=== PATIENT | female | born 1935 | race Caucasian/White ===

== ENCOUNTER → 2020-08-16 | Outpatient (CLI) | payer MEDICARE ==
--- NOTE | 2020-08-16 16:55 | RAD ---
PQRS Compliance Statement: One or more of the following individualized dose reduction techniques were utilized for this examinat ion: 1. Automated exposure control 2. Adjustment of the mA and/or kV according to patient size 3. Use of iterative reconstruction technique CT LOWER LEFT EXTREMITY WITHOUT CONTRAST Clinical Indication: Reason: OA L HIP Comparison: None. TECHNIQUE: Helical CT imaging of the pelvis is performed without IV contrast. Findings: There is no acute fracture or dislocation of the hips. There is mild to moderate arthropathy of the h ips for patient age. Small ossific bodies superior to the left hip may be heterotopic ossification. T here is probable diffuse demineralization. The sacroiliac joints are incompletely imaged. There is severe sigmoid colon diverticulosis. The urinary bladder is normal. Hysterectomy. No pelvic free fluid. No inguinal adenopathy. No acute intramuscular hematoma. IMPRESSION: 1. Mild to moderate arthropathy of the hips. 2. No acute bone abnormality. Electronically signed by: Christian Vargas MD (08/16/2020 4:52 PM) [facility]
== END ==
LOC: CT 11:14
PROVIDERS: ATTEND Nurse Practitioner Adult Health
DX: M16.12 Unilateral primary osteoarthritis, left hip (principal); K57.30 Diverticulosis of large intestine without perforation or abscess without bleeding
CPT/HCPCS: 73700

== ENCOUNTER 2021-06-14 17:07 | Emergency (ER) | payer MEDICARE ==
[~2021-06-14] VITALS: Ht 157.5 cm; Wt 80.0 kg
--- NOTE | 2021-06-14 18:07 | PHYS DOC ---
Past History Past Surgical History: Cholecystectomy, Knee Replacement, Other Additional Past Surgical Histo: back surgery x6; arm fx repair (JULIUS DHALIWAL APRN) Alcohol Use: None (JULIUS DHALIWAL APRN) General Adult EDM: Chief Complaint: RIB PAIN HPI: HPI: Patient is a 85-year-old female who presents after a fall with right-sided neck, shoulder and rib pain. Patient states she was outside when she tripped over a hose in the yard. Unknown loss of consciousness. Fall was not witnessed. Patient reports that pain is worse with taking a deep breath. Patient was able to ambulate for incident occurred. Denies taking anything at home for pain. Denies blood thinners. History of hypertension. (JULIUS DHALIWAL APRN) Review of Systems: Review of Systems: ROS At least 10 ROS systems have been reviewed and are negative except as documented in the HPI. General: Negative except as outlined in HPI above. Skin: Negative except as outlined in HPI above. HEENT: Negative except as outlined in HPI above. Neck: Negative except as outlined in HPI above. Respiratory: Negative except as outlined in HPI above.. Cardiovascular: Negative except as outlined in HPI above. Abdomen: Negative except as outlined in HPI above. : Negative except as outlined in HPI above. Back/MSK: Negative except as outlined in HPI above. Neuro: Negative except as outlined in HPI above. Psych: Negative except as outlined in HPI above. (JULIUS DHALIWAL APRN) Allergies: Allergies: Allergies Coded Allergies Type Severity Reaction Last Updated Verified Penicillins Allergy Unknown 06/14/21 Yes (JULIUS DHALIWAL APRN) Physical Exam: PE: Constitutional: Well developed, well nourished, no acute distress, non-toxic appearance. [] HENT: Normocephalic, atraumatic, bilateral external ears normal, oropharynx moist, no oral exudates, nose normal. [] Eyes: PERRLA, EOMI, conjunctiva normal, no discharge. [] Neck: Normal range of motion, no tenderness, supple, no stridor. [] Cardiovascular:Heart rate regular rhythm, no murmur [] Lungs & Thorax: Bilateral breath sounds clear to auscultation [] Abdomen: Bowel sounds normal, soft, no tenderness, no masses, no pulsatile masses. [] Skin: Warm, dry, no erythema, no rash. [] Back: No tenderness, no CVA tenderness. [] Extremities: Right-sided shoulder tenderness, ROM intact, no edema. [] Neurologic: Alert and oriented X 3, normal motor function, normal sensory function, no focal deficits noted. [] Psychologic: Affect normal, judgement normal, mood normal. [] (JULIUS DHALIWAL APRN) Current Patient Data: Vital Signs: Vital Signs Date Time Temp Pulse Resp B/P (MAP) Pulse Ox O2 Delivery O2 Flow Rate FiO2 06/14/21 17:53 63 18 157/84 (108) 98 06/14/21 17:22 97.5 Room Air (JULIUS DHALIWAL APRN) EKG: EKG: [] (JULIUS DHALIWAL APRN) Radiology/Procedures: Radiology/Procedures: []XR SHOULDER_RIGHT 2+ VIEWS DATE: 06/14/2021 6:03 PM INDICATION: fall, r shoulder pain COMPARISON: None. FINDINGS: Bones: There is no evidence of acute fracture or dislocation. Joints: Severe right clavicular joint degenerative changes. Moderate glenohumeral joint degenerative changes. The acromiohumeral distance is not narrowed. Miscellaneous: No abnormal soft tissue calcifications in the shoulder. IMPRESSION: No evidence of acute fracture. Electronically signed by: Rob Abdul MD (06/14/2021 6:55 PM) [facility] MIN 3 VIEWS RT W/PA CHEST DATE: 06/14/2021 6:03 PM INDICATION: fall, r shoulder pain, rib pain COMPARISON: None available. FINDINGS: Chest: Heart size is within normal limits. Atherosclerosis of the thoracic aorta. No focal consolidations are seen. No evidence for pulmonary edema, pleural effusion, or pneumothorax. Bones: Acute nondisplaced right fourth and sixth rib fractures. IMPRESSION: Acute nondisplaced right fourth and sixth rib fractures. Electronically signed by: Rob Abdul MD (06/14/2021 6:55 PM) [facility] History: Reason: fall / Spl. Instructions: / History: . Pain Comparison: None. Technique: Noncontrast CT imaging was performed of the head and cervical spine. Coronal and sagittal reconstructions were performed. Exposure: One or more of the following individualized dose reduction techniques were utilized for this examination: 1. Automated exposure control 2. Adjustment of the mA and/or kV according to patient size 3. Use of iterative reconstruction technique. Findings: Head CT: No intracranial hemorrhage. No mass effect. No hydrocephalus. Extra- axial spaces are unremarkable. Imaged orbits are unremarkable. Imaged paranasal sinuses and mastoid air cells are clear. No acute calvarial fracture. Cervical spine CT: Straightening of the cervical spine. Glenoid 1 anterolisthesis C7 on T1 and T1 on T2. Slight retrolisthesis C5 on C6. No acute fracture. Advanced C1-C2 degenerative changes with posterior pannus formation contributing to severe canal narrowing at the cervical medullary junction with cord flattening. Additional moderate degenerative disc changes throughout the cervical spine. Facet arthropathy, left greater than right. Soft tissues unremarkable. Impression: Head CT: 1. No acute intracranial abnormality. Cervical spine CT: 1. No acute fracture or subluxation of the cervical spine. 2. Advanced C1-C2 degenerative changes posterior pannus formation contributing to severe canal narrowing at the cervical medullary junction with cord flattening. Electronically signed by: Ellis Moulton DO (06/14/2021 6:43 PM) [facility] (JULIUS DHALIWAL APRN) Heart Score: C/O Chest Pain: No Risk Factors: Risk Factors: DM, Current or recent (<one month) smoker, HTN, HLP, family history of CAD, obesity. Risk Scores: Score 0 - 3: 2.5% MACE over next 6 weeks - Discharge Home Score 4 - 6: 20.3% MACE over next 6 weeks - Admit for Clinical Observation Score 7 - 10: 72.7% MACE over next 6 weeks - Early Invasive Strategies (JULIUS DHALIWAL APRN) Course & Med Decision Making: Course & Med Decision Making Pertinent Labs and Imaging studies reviewed. (See chart for details) [] 85-year-old female presents after a fall at home. Complaining of right-sided shoulder, rib, neck pain. Patient reports tripping over a hose in the yard. Unknown loss of consciousness. Denies blood thinners. Patient is rating pain 8/10. Pain is worse with movement and taking a deep breath. Shoulder, chest and rib x-ray obtained. Range of motion still intact. Patient was able to ambulate on her own into the emergency room and after incidents occurred. No signs of trauma. Denies any other injuries or pain. Patient given hydrocodone for pain. Shoulder, CT head and cervical spine are unremarkable. No fractures or intracranial bleeding seen. Rib and chest x-ray shows acute, nondisplaced right fourth and sixth rib fractures.I discussed all results with patient and daughter. Advised patient she will be sore for the next few days due to the fall. Educated patient on the importance of taking a deep breath. Patient given incentive spirometer to use at home and educated on how to use to avoid pneumonia. Sending patient home with hydrocodone to use for pain. Discussed [id number] medications such as ibuprofen breakthrough pain at home. I discussed return precautions with patient. Patient verbalizes understanding of discharge instructions. Advised patient to follow-up with her PCP for further management. Patient is appreciative and okay with discharge plan. (JULIUS DHALIWAL APRN) Dragon Disclaimer: Dragon Disclaimer: This electronic medical record was generated, in whole or in part, using a voice recognition dictation system. (JULIUS DHALIWAL APRN) Departure Departure: Impression: Primary Impression: Fall Qualified Codes: W19.XXXA - Unspecified fall, initial encounter Additional Impression: Rib fracture Qualified Codes: S22.41XA - Multiple fractures of ribs, right side, initial encounter for closed fracture Disposition: 01 HOME / SELF CARE / HOMELESS Condition: STABLE Referrals: AJIT GONZALES MD (PCP) Patient Instructions: Rib Fracture, [id number] Additional Instructions: You were seen in the emergency room for a fall. X-ray showed a rib fracture on the fourth and sixth ribs on your right side. Your shoulder x-ray, CT of your head and neck were all unremarkable. You can expect to be sore for the next few days due to the fall. I am sending you home with prescription for hydrocodone to help with pain. You can also take ibuprofen for breakthrough pain. Please follow-up with Dr. Kramer for further management. Return to the emergency room if you have worsening symptoms or concerns such as increasing pain, altered mental status, uncontrolled vomiting. EMERGENCY DEPARTMENT GENERAL DISCHARGE INSTRUCTIONS Thank you for coming to [facility] (ED) today and trusting us with you care. We trust that you had a positivie experience in our Emergency Department. If you wish to speak to the department management, you may call the director at [phone]. YOUR FOLLOW UP INSTRUCTIONS ARE FOLLOWS: 1. Do you have a private Doctor? If you do not have a private doctor, please ask for a resource list of physicians or clinics that may be able to assist you with follow up care. 2. The Emergency Physician has interpreted your x-rays. The X-Ray specialist will also review them. If there is a change in the findings, you will be notified in 48 hours when at all possible. 3. A lab test or culture has been done, your results will be reviewed and you will be notified if you need a change in treatment. ADDITIONAL INSTRUCTIONS AND INFORMATION: 1. Your care today has been supervised by a physician who is specially trained in emergency care. Many problems require more than one evaluation for a complete diagnosis and treatment. We recommend that you schedule your follow up appointment as recommended to ensure complete treatment of you illness or injury. If you are unable to obtain follow up care and continue to have a problem, or if your condition worsens, we recommend that you return to the ED. 2. We are not able to safely determine your condition over the phone nor are we able to give sound medical advice over the phone. For these safety reasons, if you call for medical advice we will ask you to come to the ED for further evaluation. 3. If you have any questions regarding these discharge instructions please call the ED at [phone]. SAFETY INFORMATION: In the interest of safety, wellness, and injury prevention; we encourage you to wear your sealbelt, if you smoke; quite smoking, and we encourage family to use a protective helmet for bicycling and other sporting events that present an increased risk for head injury. IF YOUR SYMPTOMS WORSEN OR NEW SYMPTOMS DEVELOP, OR YOU HAVE CONCERNS ABOUT YOUR CONDITION; OR IF YOUR CONDITION WORSENS WHILE YOU ARE WAITING FOR YOUR FOLLOW UP APPOINTMENT; EITHER CONTACT YOUR PRIMARY CARE DOCTOR, THE PHYSICIAN WHOSE NAME AND NUMBER YOU WERE GIVEN, OR RETURN TO THE ED IMMEDIATELY. Scripts Hydrocodone Bit/Acetaminophen (HYDROCODONE-APAP 5-325 ) 1 Each Tablet 0.5-1 TAB PO PRN Q6HRS PRN for PAIN for 3 Days, #12 TAB 0 Refills Prov: JULIUS DHALIWAL BUSINESS LEADER 06/14/21 Dragon Disclaimer This chart was dictated in whole or in part using Voice Recognition software in a busy, high-work load, and often noisy Emergency Department environment. It may contain unintended and wholly unrecognized errors or omissions. (OH TODD MD) Dragon Disclaimer This chart was dictated in whole or in part using Voice Recognition software in a busy, high-work load, and often noisy Emergency Department environment. It may contain unintended and wholly unrecognized errors or omissions. (OH TODD MD) Attending Signature Attending Signature I have participated in the care of this patient and I have reviewed and agree with all pertinent clinical information above including history, exam, and recommendations. (OH TODD MD) JULIUS DHALIWAL BUSINESS LEADER Jun 14, 2021 18:07 [place] TODD MD Jun 15, 2021 07:21
[2021-06-14] MEDS ORDERED: HYDROcodone/APAP 5/325MG 1 TAB TABLET PO ONE ×2 (18:15→19:45)
--- NOTE | 2021-06-14 18:45 | RAD ---
CT HEAD AND C-SPINE WO History: Reason: fall / Spl. Instructions: / History: . Pain Comparison: None. Technique: Noncontrast CT imaging was performed of the head and cervical spine. Coronal and sagittal reconstructions were performed. Exposure: One or more of the following individualized dose reduction techniques were utilized for thi s examination: 1. Automated exposure control 2. Adjustment of the mA and/or kV according to patient size 3. Use of iterative reconstruction technique. Findings: Head CT: No intracranial hemorrhage. No mass effect. No hydrocephalus. Extra-axial spaces are unrema rkable. Imaged orbits are unremarkable. Imaged paranasal sinuses and mastoid air cells are clear. No acute ca lvarial fracture. Cervical spine CT: Straightening of the cervical spine. Glenoid 1 anterolisthesis C7 on T1 and T1 on T2. Slight retrolis thesis C5 on C6. No acute fracture. Advanced C1-C2 degenerative changes with posterior pannus formation contributing to severe canal narr owing at the cervical medullary junction with cord flattening. Additional moderate degenerative disc changes throughout the cervical spine. Facet arthropathy, left greater than right. Soft tissues unremarkable. Impression: Head CT: 1. No acute intracranial abnormality. Cervical spine CT: 1. No acute fracture or subluxation of the cervical spine. 2. Advanced C1-C2 degenerative changes posterior pannus formation contributing to severe canal narro wing at the cervical medullary junction with cord flattening. Electronically signed by: Ellis Moulton DO (06/14/2021 6:43 PM) [facility]
--- NOTE | 2021-06-14 18:57 | RAD ---
XR RIBS MIN 3 VIEWS RT W/PA CHEST DATE: 06/14/2021 6:03 PM INDICATION: fall, r shoulder pain, rib pain COMPARISON: None available. FINDINGS: Chest: Heart size is within normal limits. Atherosclerosis of the thoracic aorta. No focal consolidat ions are seen. No evidence for pulmonary edema, pleural effusion, or pneumothorax. Bones: Acute nondisplaced right fourth and sixth rib fractures. IMPRESSION: Acute nondisplaced right fourth and sixth rib fractures. Electronically signed by: Rob Abdul MD (06/14/2021 6:55 PM) [facility]
--- NOTE | 2021-06-14 18:57 | RAD ---
XR SHOULDER_RIGHT 2+ VIEWS DATE: 06/14/2021 6:03 PM INDICATION: fall, r shoulder pain COMPARISON: None. FINDINGS: Bones: There is no evidence of acute fracture or dislocation. Joints: Severe right clavicular joint degenerative changes. Moderate glenohumeral joint degenerative changes. The acromiohumeral distance is not narrowed. Miscellaneous: No abnormal soft tissue calcifications in the shoulder. IMPRESSION: No evidence of acute fracture. Electronically signed by: Rob Abdul MD (06/14/2021 6:55 PM) [facility]
[2021-06-14] MEDS ORDERED: HYDR-2155 PO (19:36)
[2021-06-14] MEDS ORDERED: IBUPROFEN 600 MG TABLET. PO ONE (19:45)
[2021-06-14 19:58] VITALS: BP 152/80
== END 2021-06-14 20:06 | disposition home or self-care (01) ==
LOC: ER 17:07
DX: S22.41XA Multiple fractures of ribs, right side, initial encounter for closed fracture (principal); M54.2 Cervicalgia; M25.511 Pain in right shoulder; Z88.0 Allergy status to penicillin; W01.0XXA Fall on same level from slipping, tripping and stumbling without subsequent striking against object, initial encounter; Y93.89 Activity, other specified; Y92.096 Garden or yard of other non-institutional residence as the place of occurrence of the external cause; Y99.8 Other external cause status
CPT/HCPCS: 70450; 71101; 72125; 73030; 99284; 99285